=== PATIENT | female | born 1955 | race Caucasian/White ===

== ENCOUNTER 2018-07-21 16:24 | Inpatient (IN) ==
[2018-07-21] MEDS ORDERED: Ipratropium/Albuterol Neb 3 ML IH ONE ×2 (16:54→17:24)
[2018-07-21] MEDS ORDERED: methylPREDNISolone 125 MG/2 ML VIAL IVP ONE (17:24)
--- NOTE | 2018-07-21 17:27 | Emergency Department Note ---
Disposition Clinical Impression: COPD exacerbation Disposition: Still a Patient General Adult HPI - General Chief complaint: ED Shortness of Breath/Dyspnea Stated complaint: CP/KELSEY/Swollen legs Time Seen by Provider: 07/21/18 16:54 Source: patient, family Limitations: no limitations Nursing Notes Reviewed: Yes Vital Signs Reviewed: Yes - History of Present Illness HPI Narrative: ED attending attestation note: I examined this patient and my medical decision-making was reviewed with the emergency medicine resident ZAYRA BERTRAND agree with the documented findings, disposition and treatment plan as described except to the extent set forth below. Briefly: 63-year-old female former smoker history of COPD comes in with increasing shortness of breath chest discomfort and leg swelling. Expiratory wheezes. O2 sats are 96% on supplemental oxygen. Patient getting triple doing nebs steroids screening labs chest x-ray and EKG. Disposition pending, providing 30 minutes critical care service for this patient. Pain Scale: 2 - Related Data Home Medications Medication Instructions Recorded Confirmed Oxygen 2.5 each .ROUTE CONT 10/11/15 07/03/18 Tiotropium [Spiriva] 2 cap IH DAILY 10/11/15 07/03/18 Alendronate Sodium [Fosamax] 70 mg PO SA 06/10/18 07/03/18 Ascorbic Acid [Vitamin C] 500 mg PO DAILY 06/10/18 07/03/18 Aspirin Enteric Coated [Aspirin EC] 81 mg PO DAILY 06/10/18 07/03/18 Fish Oil/Dha/Epa [Fish Oil 1,200 4 each PO DAILY 06/10/18 07/03/18 mg Fish Oil] LORazepam [Lorazepam] 2 mg PO TID 06/10/18 07/03/18 traZODone [TraZODone] 100 mg PO HS 06/10/18 07/03/18 Acetylcysteine [Nac] 600 mg PO BID 06/11/18 07/03/18 Budesonide/Formoterol 160/4.5 2 puff IH BID 06/11/18 07/03/18 [Symbicort 160/4.5] Methylsulfonylmethane [MSM] 2,000 mg PO DAILY 06/11/18 07/03/18 Cholecalciferol (Vitamin D3) 6,000 unit PO DAILY 06/14/18 07/03/18 [Vitamin D3] Doxycycline Hyclate [Vibramycin] 100 mg PO Q12H 07/03/18 07/03/18 Ipratropium/Albuterol Neb [Duoneb] 3 ml IH QID 07/03/18 07/03/18 LORazepam [Lorazepam] 2 mg PO TID 07/03/18 07/03/18 OXcarbazepine [Oxcarbazepine] 150 mg PO HS 07/03/18 07/03/18 Roflumilast [Daliresp] 500 mcg PO DAILY 07/03/18 07/03/18 Allergies Allergy/AdvReac Type Severity Reaction Status Date / Time azithromycin [From Zithromax] Allergy See Verified 06/11/18 21:34 Comments diphenhydramine Allergy Dizziness/ Verified 06/11/18 21:34 [From Benadryl] DIFFICULTY SWALLOWING Past Medical History - Past Medical History Medical history: Reports: COPD Surgical history: Reports: appendectomy Psychiatric history: Reports: anxiety, depression, panic disorder 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, 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 - Social History Smoking Status: Current every day smoker Smokeless Tobacco Status: No Alcohol use: Reports: none Drug use: Reports: none Physical Exam - General Limitations: no limitations General appearance: alert, in no apparent distress Course Vital Signs Temperature 98.6 F 07/21/18 16:26 Pulse Rate 104 07/21/18 16:26 Respiratory Rate 22 07/21/18 16:26 Blood Pressure 127/78 07/21/18 16:26 O2 Sat by Pulse Oximetry 95 07/21/18 16:26 Temperature 98.6 F 07/21/18 16:26 Pulse Rate 104 07/21/18 16:26 Respiratory Rate 22 07/21/18 16:26 Blood Pressure 127/78 07/21/18 16:26 O2 Sat by Pulse Oximetry 97 07/21/18 16:56 Oxygen Delivery Oxygen Delivery Room Air
--- NOTE | 2018-07-21 17:41 | Emergency Department Note ---
Disposition Clinical Impression: COPD exacerbation Disposition: Still a Patient Referrals: Javi Eduardo MD [Primary Care Provider] - Forms: ED Satisfaction Letter SOB HPI - General Chief Complaint: ED Shortness of Breath/Dyspnea Stated Complaint: CP/KELSEY/Swollen legs Time Seen by Provider: 07/21/18 16:54 Source: patient, family Limitations: no limitations Nursing Notes Reviewed: Yes Vital Signs Reviewed: Yes - History of Present Illness 63yo female presents from home with bedside for evaluation of dyspnea. SHe was admitted to this facility 5 weeks ago with acute exacerbation COPD. She improved slightly however is not back to baseline. She previously used 2L NC at night. Since discharge has been using 2-2.5L O2 continuously. Not improved with home duonebs. She finished her last dose of prednisone 2days ago. She has no associated cough. No fever. No chest pain. Patient also notes orthopnea. Present for the past 5 weeks and unchanged recently. PMH: COPD, anxiety, depression. ROS: Pos: dyspnea Neg: fever, chills, nausea, vomiting, chest pain, palpitations, vertigo - Related Data Home Medications Medication Instructions Recorded Confirmed Oxygen 2.5 each .ROUTE CONT 10/11/15 07/03/18 Tiotropium [Spiriva] 2 cap IH DAILY 10/11/15 07/03/18 Alendronate Sodium [Fosamax] 70 mg PO SA 06/10/18 07/03/18 Ascorbic Acid [Vitamin C] 500 mg PO DAILY 06/10/18 07/03/18 Aspirin Enteric Coated [Aspirin EC] 81 mg PO DAILY 06/10/18 07/03/18 Fish Oil/Dha/Epa [Fish Oil 1,200 4 each PO DAILY 06/10/18 07/03/18 mg Fish Oil] LORazepam [Lorazepam] 2 mg PO TID 06/10/18 07/03/18 traZODone [TraZODone] 100 mg PO HS 06/10/18 07/03/18 Acetylcysteine [Nac] 600 mg PO BID 06/11/18 07/03/18 Budesonide/Formoterol 160/4.5 2 puff IH BID 06/11/18 07/03/18 [Symbicort 160/4.5] Methylsulfonylmethane [MSM] 2,000 mg PO DAILY 06/11/18 07/03/18 Cholecalciferol (Vitamin D3) 6,000 unit PO DAILY 06/14/18 07/03/18 [Vitamin D3] Doxycycline Hyclate [Vibramycin] 100 mg PO Q12H 07/03/18 07/03/18 Ipratropium/Albuterol Neb [Duoneb] 3 ml IH QID 07/03/18 07/03/18 LORazepam [Lorazepam] 2 mg PO TID 07/03/18 07/03/18 OXcarbazepine [Oxcarbazepine] 150 mg PO HS 07/03/18 07/03/18 Roflumilast [Daliresp] 500 mcg PO DAILY 07/03/18 07/03/18 Allergies Allergy/AdvReac Type Severity Reaction Status Date / Time azithromycin [From Zithromax] Allergy See Verified 06/11/18 21:34 Comments diphenhydramine Allergy Dizziness/ Verified 06/11/18 21:34 [From Benadryl] DIFFICULTY SWALLOWING All systems ED: reviewed and negative except as stated. 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 Head: atraumatic, normocephalic Eye: normal appearance, PERRL, EOMI, no scleral icterus, no conjunctival injection ENT: mucous membranes moist, normal external ear exam Neck: normal inspection, trachea midline, full ROM Chest: normal inspection, symmetric chest rise Respiratory: Good respiratory effort. Bilateral breath sounds are equally diminished with prolonged expiratory phase and expiratory wheeze. No crackles or rhonchi. Cardiovascular: Regular rate and rhythm. No clicks, rubs, gallops, or murmors. Normal heart sounds. BL radial pulses 2/4. No pedal edema. Abdomen: Bowel sounds present normoactive. Abdomen is soft, nondistended, and nontender. No guarding or rebound. No organomegaly noted. Musculoskeletal: Spontaneously moving all extremities. Skin: warm, dry, intact. Neuro: GCS 15. No focal neurologic deficits observed. Psych: Patient's affect is appropriate for situation. - General Limitations: no limitations General appearance: alert, in no apparent distress Course Course Narrative: Clinically suspect acute exacerbation COPD. Duonebs, solumedrol. Also eval for potential pulmonary infection and cardiac ischemia. EKG dated 21 July 2018 at 16:31 interpreted as sinus tachycardia with a rate of 102. MD 175, QRS 77, QTc 375. Normal axis. Non-specific STT changes. Compar ed to previous EKG dated 06/10/18 showing no acute ischemic changes. Vital Signs Temperature 98.6 F 07/21/18 16:26 Pulse Rate 104 07/21/18 16:26 Respiratory Rate 22 07/21/18 16:26 Blood Pressure 127/78 07/21/18 16:26 O2 Sat by Pulse Oximetry 95 07/21/18 16:26 Temperature 98.6 F 07/21/18 16:26 Pulse Rate 100 07/21/18 18:38 Respiratory Rate 20 07/21/18 18:38 Blood Pressure 145/84 07/21/18 18:38 O2 Sat by Pulse Oximetry 97 07/21/18 18:38 Oxygen Delivery Oxygen Delivery Nasal Cannula Shortness of Breath/Dyspnea - Lab Data Result diagrams: 07/21/18 17:57 Lab Results 07/21/18 Range/Units 17:57 WBC 9.2 (4.3-11.1) K/mcL RBC 4.70 (3.82-4.97) M/mcL Hgb 13.8 (11.5-15.4) g/dL Hct 42.8 (35.3-44.9) % MCV 91.1 (83.0-100.0) fL MCH 29.4 (28.0-33.3) pg MCHC 32.2 (31.6-35.5) g/dL RDW 14.7 H (11.5-14.5) % Plt Count 215 (140-400) K/mcL MPV 9.7 (9.4-12.4) fL Immature Gran % 1.0 (0-4) % Seg Neutrophils % 78.7 % Lymphocytes % 13.7 % Monocytes % 6.1 % Eosinophils % 0.1 % Basophils % 0.4 % Neutrophils # 7.3 (1.6-8.9) K/mcL Lymphocytes # 1.3 (0.6-4.6) K/mcL Monocytes # 0.6 (0.0-1.3) K/mcL Eosinophils # 0.0 (0.0-0.6) K/mcL Basophils # 0.0 (0.0-0.2) K/mcL
[2018-07-21 18:29] LABS: Basophils % 0.4 %; Eosinophils % 0.1 %; Hematocrit 42.8 % (35.3-44.9); Hemoglobin 13.8 g/dL (11.5-15.4); Lymphocytes # 1.3 K/mcL (0.6-4.6); Lymphocytes % 13.7 %; Mean Corpuscular HGB Conc 32.2 g/dL (31.6-35.5); Mean Corpuscular Hemoglobin 29.4 pg (28.0-33.3); Mean Corpuscular Volume 91.1 fL (83.0-100.0); Mean Platelet Volume 9.7 fL (9.4-12.4); Monocytes # 0.6 K/mcL (0.0-1.3); Monocytes % 6.1 %; Neutrophils # 7.3 K/mcL (1.6-8.9); Platelet Count 215 K/mcL (140-400); Red Cell Distribution Width 14.7 % (11.5-14.5); Segmented Neutrophils % 78.7 %
[2018-07-21 18:53] LABS: BUN/Creatinine Ratio 12 (6-26); Blood Urea Nitrogen 6 mg/dL (8-23); Calcium 9.2 mg/dL (8.6-10.3); Carbon Dioxide 30 mEq/L (23-29); Chloride 102 mEq/L (98-107); Glucose 95 mg/dL (70-105); Osmolality,Calculated 291 (280-300); Potassium 3.9 mEq/L (3.5-5.1); Sodium 142 mEq/L (136-145); Troponin I < 0.03 ng/mL (< 0.04); eGFR For Non-African Americans > 60 (> 60)
--- NOTE | 2018-07-21 18:58 | Emergency Department Note ---
Disposition Clinical Impression: COPD exacerbation Disposition: Admitted As Inpatient Condition: Good Time of Disposition: 18:57 General Adult HPI - General Chief complaint: ED Shortness of Breath/Dyspnea Stated complaint: CP/KELSEY/Swollen legs Time Seen by Provider: 07/21/18 16:54 Source: patient, family Limitations: no limitations Nursing Notes Reviewed: Yes Vital Signs Reviewed: Yes - History of Present Illness Pain Scale: 0 - Related Data Home Medications Medication Instructions Recorded Confirmed Oxygen 2.5 each .ROUTE CONT 10/11/15 07/21/18 Tiotropium [Spiriva] 2 cap IH DAILY 10/11/15 07/21/18 Alendronate Sodium [Fosamax] 70 mg PO SA 06/10/18 07/21/18 Ascorbic Acid [Vitamin C] 500 mg PO DAILY 06/10/18 07/21/18 Aspirin Enteric Coated [Aspirin EC] 81 mg PO DAILY 06/10/18 07/21/18 Fish Oil/Dha/Epa [Fish Oil 1,200 4 each PO DAILY 06/10/18 07/21/18 mg Fish Oil] LORazepam [Lorazepam] 2 mg PO TID 06/10/18 07/21/18 traZODone [TraZODone] 100 mg PO HS 06/10/18 07/03/18 Acetylcysteine [Nac] 600 mg PO BID 06/11/18 07/21/18 Budesonide/Formoterol 160/4.5 2 puff IH BID 06/11/18 07/21/18 [Symbicort 160/4.5] Methylsulfonylmethane [MSM] 2,000 mg PO DAILY 06/11/18 07/21/18 Cholecalciferol (Vitamin D3) 6,000 unit PO DAILY 06/14/18 07/21/18 [Vitamin D3] Doxycycline Hyclate [Vibramycin] 100 mg PO Q12H 07/03/18 07/03/18 Ipratropium/Albuterol Neb [Duoneb] 3 ml IH QID 07/03/18 07/21/18 LORazepam [Lorazepam] 2 mg PO TID 07/03/18 07/03/18 OXcarbazepine [Oxcarbazepine] 150 mg PO HS 07/03/18 07/21/18 Roflumilast [Daliresp] 500 mcg PO DAILY 07/03/18 07/21/18 Previous Rx's Medication Instructions Recorded PredniSONE [Deltasone] 40 mg PO DAILY #10 tablet 07/21/18 Allergies Allergy/AdvReac Type Severity Reaction Status Date / Time azithromycin [From Zithromax] Allergy See Verified 06/11/18 21:34 Comments diphenhydramine Allergy Dizziness/ Verified 06/11/18 21:34 [From Benadryl] DIFFICULTY SWALLOWING Past Medical History - Past Medical History Attestation: Yes The following information was validated with the patient. 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 - Social History Smoking Status: Current every day smoker Smokeless Tobacco Status: No Alcohol use: Reports: none Drug use: Reports: none Physical Exam - General Limitations: no limitations General appearance: alert, in no apparent distress - Head Head exam: atraumatic, normocephalic, normal inspection - Eye Eye exam: Present: normal appearance, PERRL, EOMI - ENT ENT exam: normal exam, normal oropharynx, mucous membranes moist - Neck Neck exam: Present: normal inspection, full ROM, trachea midline - Chest Chest inspection: Present: normal inspection, symmetric chest wall rise - Respiratory Respiratory exam: Present: normal lung sounds bilaterally. Absent: respiratory distress, accessory muscle use - Cardiovascular Cardiovascular exam: Present: regular rate, normal rhythm, normal heart sounds - Extremities Exam Extremities exam: Present: normal inspection, full ROM, normal capillary refill. Absent: tenderness, pedal edema - Neurological Exam Neurological exam: Present: alert, oriented X3 - Psychiatric Psychiatric exam: Present: normal affect, normal mood - Skin Skin exam: Present: warm, dry, intact, normal color Course Course Narrative: Patient signed out by the date seen please see their note for further. Patient denying any chest pain. Workup is completed. No significant laboratory abnormalities. We will be treating the patient for a COPD exacerbation with doxycycline and prednisone burst. - Reevaluation(s) Reevaluation #1: Patient ambulated back from the bathroom is now sitting on bed. She has her at- home pulse ox on her finger. She appears anxious and states that her numbers were 86/112. To clarify this her oxygen saturations appeared to be 86 and her heart rate appear to be 112. However on our monitor the patient pulse ox is 95% on HER-2 liters that she wears all the time. After patient states in the bed and we have a conversation patient states that she does have a history of anxiety. He has been is at bedside and states that this is concerning for him because he does not know if this is her anxiety or her COPD. He states that she frequently gets very anxious. Patient is resting comfortable during our extensive conversation. It does appear is a patient had recently been on doxycycline as well as prednisone by Dr. Viviana nino after a discharge from the hospital here for an admission for a COPD exacerbation. She is now on oxygen all the time. She was not on it previously. She denies a fever. She denies a cough. She states that she does intermittently have lower extremity swelling and reports some swelling currently however on exam there is no swelling to her lower extremities. Her lung sounds are markedly clear. I discussed with patient that we will have her sit for approximately 15 minutes and ambulate her on her oxygen as she was not wearing it when she went to the bathroom before. Patient states that she does follow again with Dr. Viviana nino in pulmonology and she will be able to see them. Time: 19:32 Reevaluation #2: Patient hypoxic on ambulation. Thought is oxygen saturation of 86% on 2 L of oxygen. We will admit patient to the hospital for COPD exacerbation. - Consultations Consultation #1: Dr gray accepted patient in stable condition. Time: 20:26 Vital Signs Temperature 98.6 F 07/21/18 16:26 Pulse Rate 104 07/21/18 16:26 Respiratory Rate 22 07/21/18 16:26 Blood Pressure 127/78 07/21/18 16:26 O2 Sat by Pulse Oximetry 95 07/21/18 16:26 Temperature 98.6 F 07/21/18 16:26 Pulse Rate 100 07/21/18 18:38 Respiratory Rate 20 07/21/18 18:38 Blood Pressure 145/84 07/21/18 18:38 O2 Sat by Pulse Oximetry 97 07/21/18 18:38 Oxygen Delivery Oxygen Delivery Nasal Cannula Medical Decision Making - Medical Records Medical records reviewed: Yes I reviewed the patient's medical records. - Lab Data Lab results reviewed: Yes I reviewed the patient's lab results. Result diagrams: 07/21/18 17:57 07/21/18 17:57 Lab Results 07/21/18 07/21/18 07/21/18 Range/Units 17:57 17:57 17:57 WBC 9.2 (4.3-11.1) K/mcL RBC 4.70 (3.82-4.97) M/mcL Hgb 13.8 (11.5-15.4) g/dL Hct 42.8 (35.3-44.9) % MCV 91.1 (83.0-100.0) fL MCH 29.4 (28.0-33.3) pg MCHC 32.2 (31.6-35.5) g/dL RDW 14.7 H (11.5-14.5) % Plt Count 215 (140-400) K/mcL MPV 9.7 (9.4-12.4) fL Immature Gran % 1.0 (0-4) % Seg Neutrophils % 78.7 % Lymphocytes % 13.7 % Monocytes % 6.1 % Eosinophils % 0.1 % Basophils % 0.4 % Neutrophils # 7.3 (1.6-8.9) K/mcL Lymphocytes # 1.3 (0.6-4.6) K/mcL Monocytes # 0.6 (0.0-1.3) K/mcL Eosinophils # 0.0 (0.0-0.6) K/mcL Basophils # 0.0 (0.0-0.2) K/mcL Sodium 142 (136-145) mEq/L Potassium 3.9 (3.5-5.1) mEq/L Chloride 102 (98-107) mEq/L Carbon Dioxide 30 H (23-29) mEq/L BUN 6 L (8-23) mg/dL Creatinine 0.50 L (0.60-1.20) mg/dL Est GFR ( Amer) > 60 (> 60) Est GFR (Non-Af Amer) > 60 (> 60) BUN/Creatinine Ratio 12 (6-26) Glucose 95 (70-105) mg/dL Calculated Osmolality 291 (280-300) Calcium 9.2 (8.6-10.3) mg/dL Troponin I < 0.03 (< 0.04) ng/mL B-Natriuretic Peptide 46 (Less than 100) pg/mL - Radiology Data Radiology results reviewed: Yes I reviewed the patient's radiology results. Chest X-Ray 07/21/18 16:55 IMPRESSION: Question of COPD with chronic lung changes. No acute cardiopulmonary disease. D/ / Dilshad Gerardo MD / Dilshad Gerardo MD Interpreting Provider: Dilshad Gerardo MD Attestation Statement - Attestation Attestation: I, Jb Lock, examined this patient and my medical decision-making was reviewed with the LABORATORY COURIER/PA/Advanced Practice Nurse/Resident Physician. I agree with the documented findings, disposition and treatment plan as described except to the extent set forth below. 63-year-old received in signout pending laboratory evaluation, reevaluation and disposition. Patient has a history of COPD and has had difficulty in breathing. She received 3 treatments in the emergency department. Chest x-ray does not show acute infiltrate. Patient became hypoxic with ambulation. She will be at admitted to hospitalist for further evaluation.
[2018-07-21] MEDS ORDERED: Levofloxacin 750 MG/150 ML 750 MG/150 ML BAG IVPB ONE (20:24)
[2018-07-21] MEDS ORDERED: Albuterol 2.5 MG/3 ML NEBULIZER IH PRN (22:22)
[2018-07-21] MEDS: Ipratropium/Albuterol Neb 3 ML IH SCH (23:03)
[2018-07-22] MEDS: Ipratropium/Albuterol Neb 3 ML IH SCH ×6 (03:41→23:12)
[2018-07-22] MEDS ORDERED: Naloxone 0.4 MG/ML INJ IVP PRN (08:17)
[2018-07-22] MEDS ORDERED: Ondansetron 4 MG/2 ML VIAL IVP PRN (08:17)
--- NOTE | 2018-07-22 09:42 | Pulmonary Rehab ITP ---
Pulmonary Rehab ITP - Core Component: Tobacco Assessment Smoking Status: Current every day smoker - Nutrition Assessment Height: 1.65 m Weight: 89.5 kg Body Mass Index (BMI): 32.83 Body Mass Index (BMI) Classification: Obese - Six Minute Walk Test Oxygen Flow Rate (LPM): 3 Attestation Statement: I had face to face contact with patient, reviewed the ITP, and agree with continuation of plan.
[2018-07-22] MEDS: Aspirin Enteric Coated 81 MG Tablet PO SCH (09:59)
[2018-07-22] MEDS: *HR* LORazepam 1 MG TABLET PO SCH ×3 (09:59→21:08)
[2018-07-22] MEDS: MethylPREDNISolone 40 MG/ML VIAL IVP SCH ×2 (09:59→17:46)
[2018-07-22] MEDS: Budesonide/Formoterol 160/4.5 1 PUFF INH IH SCH ×2 (11:08→19:35)
--- NOTE | 2018-07-22 13:09 | Internal Med History&Physical ---
Date of Encounter: 07/22/18 Time of Encounter: 12:00 Internal Medicine - H&P: HPI Chief complaint: SOB Admitted From: Home History of present illness: Ms. Iverson is a 63 year old female with history of oxygen dependent COPD, anxiety, previous tobacco use, who presented to the ED with 3 day history of shortness of breath. 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 Associated with worsening cough and sputum production. He got the point where she is unable to expectorate her phlegm for the last 2 days. Denies any fever/chills, nausea/vomiting, chest pain, diaphoresis, or sick contact. No hemoptysis, palpitation, orthopnea, PND, or leg swelling. No GI/ symptoms. No recent surgery or immobilization. In the ED, she was afebrile and hemodynamically stable. Saturating 97% on 3L O2. Labwork was unremarkable with normal white blood cell count, troponin, and BNP. Chest x-ray also does not show any acute cardiopulmonary process. Patient was given IV Solu-Medrol, bronchodilators, levaqun, and admitted for further management. Past Med Surg Social Fam HX - Past Medical History Medical history: COPD Additional medical history: Heart murmur. Psychiatric history: anxiety, depression, panic disorder - Past Surgical History Surgical History: appendectomy Additional surgical history: T6-T7 Fracture, non-surgical. - Social History Smoking Status: Former smoker Smokeless Tobacco Status: No Alcohol use: none Drug use: none - Family History Daughter Hx Family Endocrine Disorder: Yes (DM) Sister Hx Family Endocrine Disorder: Yes (DM) Brother Hx Family Endocrine Disorder: Yes (DM) Mother Living Status: Still Living Hx Family Respiratory Disorders: Yes (COPD) Internal Medicine - H&P: Meds Oxygen 2.5 each .ROUTE CONT 10/11/15 [History] Tiotropium [Spiriva] 2 cap IH DAILY 10/11/15 [History] Alendronate Sodium [Fosamax] 70 mg PO SA 06/10/18 [History] Ascorbic Acid [Vitamin C] 500 mg PO DAILY 06/10/18 [History] Aspirin Enteric Coated [Aspirin EC] 81 mg PO DAILY 06/10/18 [History] Fish Oil/Dha/Epa [Fish Oil 1,200 mg Fish Oil] 4 each PO DAILY 06/10/18 [History] LORazepam [Lorazepam] 2 mg PO TID 06/10/18 [History] traZODone [TraZODone] 100 mg PO HS 06/10/18 [History] Acetylcysteine [Nac] 600 mg PO BID 06/11/18 [History] Budesonide/Formoterol 160/4.5 [Symbicort 160/4.5] 2 puff IH BID 06/11/18 [History] Methylsulfonylmethane [MSM] 2,000 mg PO DAILY 06/11/18 [History] Cholecalciferol (Vitamin D3) [Vitamin D3] 6,000 unit PO DAILY 06/14/18 [History] Doxycycline Hyclate [Vibramycin] 100 mg PO Q12H 07/03/18 [History] Ipratropium/Albuterol Neb [Duoneb] 3 ml IH QID 07/03/18 [History] LORazepam [Lorazepam] 2 mg PO TID 07/03/18 [History] OXcarbazepine [Oxcarbazepine] 150 mg PO HS 07/03/18 [History] Roflumilast [Daliresp] 500 mcg PO DAILY 07/03/18 [History] PredniSONE [Deltasone] 40 mg PO DAILY #10 tablet 07/21/18 [Rx] Allergy/AdvReac Type Severity Reaction Status Date / Time azithromycin [From Zithromax] Allergy See Verified 06/11/18 21:34 Comments diphenhydramine Allergy Dizziness/ Verified 06/11/18 21:34 [From Benadryl] DIFFICULTY SWALLOWING All Systems PM: A 10-system review of systems was performed and is negative for pertinent findings except as documented above in the HPI. - Constitutional Vitals: Temp Pulse Resp BP Pulse Ox 97.9 F 106 19 107/70 90 07/22/18 10:35 07/22/18 10:35 07/22/18 11:10 07/22/18 10:35 07/22/18 11:10 Exam: General: Alert and oriented, mild distress. HEENT:EOM, pupils equal, round and reactive. Cardiovascular:Normal S1 & S2, No JVD. Regular rhythm but tachycardic Lungs: Wheezing worse on the lung bases, poor air entry bilaterally Abdomen:Soft, non-tender, no rigidity. Extremities:No deformity or swelling Neurological:Normal cognition and motor skills. Non-focal Skin:Normal color, no rash, no lesions. Pulses:Carotid and radial pulses normal +2. Rest of the physical exam is non contributory Internal Med - H&P Results - Labs CBC & Chem 7: 07/21/18 17:57 07/21/18 17:57 Labs: Short CBC 07/21/18 Range/Units 17:57 WBC 9.2 (4.3-11.1) K/mcL Hgb 13.8 (11.5-15.4) g/dL Hct 42.8 (35.3-44.9) % Plt Count 215 (140-400) K/mcL Neutrophils # 7.3 (1.6-8.9) K/mcL BMP 07/21/18 17:57 Sodium 142 Potassium 3.9 Chloride 102 Carbon Dioxide 30 H BUN 6 L Creatinine 0.50 L Glucose 95 Calcium 9.2 Cardiac Enzymes 07/21/18 Range/Units 17:57 Troponin I < 0.03 (< 0.04) ng/mL - Impressions ITS Impressions Chest X-Ray 07/21/18 16:55 IMPRESSION: Question of COPD with chronic lung changes. No acute cardiopulmonary disease. D/ / Dilshad Gerardo MD / Dilshad Gerardo MD Interpreting Provider: Dilshad Gerardo MD - Assessment and Plan (1) COPD exacerbation Current Visit: Yes Status: Acute Assessment and plan: Was recently on outpatient therapy with steroid and doxycycline No fever or leukocytosis. Chest x-ray without infiltrate Started on IV Solu-Medrol, bronchodilators. Will add macrolide for 5 days Check respiratory viral panel (2) Chronic respiratory failure with hypoxia Current Visit: Yes Status: Chronic Assessment and plan: on 3L at home chronically, currently requiring 3-4L due to COPD exacerbation Wean to her baseline as tolerated (3) Anxiety Current Visit: Yes Status: Acute Assessment and plan: Part of her symptoms may be attributed to poorly controlled anxiety Resume home dose of Ativan would consider adding SSRI upon discharge (4) DVT prophylaxis Current Visit: No Status: Acute Assessment and plan: Subcutaneous heparin - Time Spent With Patient Total time spent is greater than 50% in coordination of care (as documented) at patient's floor/unit and/or counseling patient: 25 - 35 minutes
[2018-07-22] MEDS: levoFLOXacin 750 MG TABLET PO SCH (13:42)
[2018-07-22] MEDS ORDERED: Azithromycin 500 MG in D5% in Water 250 ML IVPB SCH (14:00)
--- NOTE | 2018-07-22 16:16 | Electrocardiograph Report ---
[facility] Test Date: 2018-07-21 Pat Name: Akanksha Iverson Department: 104 Room: 3A34 Gender: F Tuck Pointer: : 1955 Requested By: Manolo Louis Order Number: [id number] Reading MD: Jean Claude Shelton Measurements Intervals [place] Rate: 102 P: 51 MN: 175 QRS: 42 QRSD: 77 T: 52 QT: 316 QTc: 375 Interpretive Statements SINUS TACHYCARDIA POSSIBLE LEFT ATRIAL ENLARGEMENT LOW QRS VOLTAGE IN PRECORDIAL LEADS ABNORMAL RHYTHM ECG Electronically Signed On 07-22-2018 16:15:05 EDT by Jean Claude Shelton
[2018-07-22] MEDS: *HR* Heparin 5,000 UNIT/ML VIAL SQ SCH (17:46)
[2018-07-22] MEDS: OXcarbazepine 150 MG TABLET PO SCH (21:08)
[2018-07-23] MEDS: Ipratropium/Albuterol Neb 3 ML IH SCH ×6 (03:14→23:29)
[2018-07-23] MEDS: MethylPREDNISolone 40 MG/ML VIAL IVP SCH ×2 (05:08→17:32)
[2018-07-23] MEDS: *HR* Heparin 5,000 UNIT/ML VIAL SQ SCH ×2 (05:08→17:32)
[2018-07-23] MEDS: Budesonide/Formoterol 160/4.5 1 PUFF INH IH SCH ×2 (07:16→19:50)
[2018-07-23 07:32] LABS: Adenovirus Not Detected (Not Detect); Bordetella Pertussis Not Detected (Not Detect); Chlamydophila pneumoniae Not Detected (Not Detect); Coronavirus 229E Not Detected (Not Detect); Coronavirus HKU1 Not Detected (Not Detect); Coronavirus NL63 Not Detected (Not Detect); Coronavirus OC43 Not Detected (Not Detect); Human Metapneumovirus Not Detected (Not Detect); Human Rhinovirus/Enterovirus Not Detected (Not Detect); Influenza A Subtype 2009 H1 Not Detected (Not Detect); Influenza A Untypeable Not Detected (Not Detect); Influenza B Not Detected (Not Detect); Mycoplasma pneumoniae Not Detected (Not Detect); Parainfluenza Virus 1 Not Detected (Not Detect); Parainfluenza Virus 2 Not Detected (Not Detect); Parainfluenza Virus 3 Not Detected (Not Detect); Parainfluenza Virus 4 Not Detected (Not Detect); Respiratory Syncytial Virus Not Detected (Not Detect)
[2018-07-23 07:47] LABS: Hematocrit 42.7 % (35.3-44.9); Hemoglobin 13.6 g/dL (11.5-15.4); Mean Corpuscular HGB Conc 31.9 g/dL (31.6-35.5); Mean Corpuscular Hemoglobin 29.3 pg (28.0-33.3); Mean Platelet Volume 9.7 fL (9.4-12.4); Platelet Count 242 K/mcL (140-400); Red Blood Count 4.64 M/mcL (3.82-4.97); Red Cell Distribution Width 14.6 % (11.5-14.5)
[2018-07-23 08:07] LABS: BUN/Creatinine Ratio 26 (6-26); Blood Urea Nitrogen 15 mg/dL (8-23); Calcium 9.5 mg/dL (8.6-10.3); Carbon Dioxide 30 mEq/L (23-29); Chloride 104 mEq/L (98-107); Glucose 127 mg/dL (70-105); Magnesium 2.5 mg/dL (1.6-2.6); Osmolality,Calculated 298 (280-300); Potassium 5.8 mEq/L (3.5-5.1); Sodium 143 mEq/L (136-145); eGFR For Non-African Americans > 60 (> 60)
[2018-07-23] MEDS: levoFLOXacin 750 MG TABLET PO SCH (08:44)
[2018-07-23] MEDS: *HR* LORazepam 1 MG TABLET PO SCH ×3 (08:44→20:36)
[2018-07-23] MEDS: Aspirin Enteric Coated 81 MG Tablet PO SCH (08:44)
--- NOTE | 2018-07-23 11:09 | Discharge Summary ---
- NOTES TO OUTPATIENT PROVIDER Notes to Outpatient Provider: Follow up with pulmonary and psychiatry as outpatient for COPD and anxiety respectively. Orders not resulted at time of discharge: Pending orders 07/21/18 21:58 Culture,Blood [BC] Stat 07/23/18 10:54 Potassium Stat Date of Encounter: 07/23/18 Time of Encounter: 08:15 - Discharge Diagnosis (1) COPD exacerbation Priority: Primary Status: Acute (2) Chronic respiratory failure with hypoxia Priority: Secondary Status: Chronic (3) Anxiety Priority: Secondary Status: Acute (4) DVT prophylaxis Priority: Secondary Status: Acute Hospital course: Ms. Iverson is a 63 year old female with history of oxygen dependent COPD and anxiety who was admitted for COPD exacerbation. Did not require any additional O2, no overt wheezing auscultated, no consolidation on CXR, and -ve respiratory viral panel. Pt stated that she slept well in the hospital for the first time in the last few months as she knew that she was in "safer environment". Suspect there is a large component of anxiety driving her symptomatology. She is seeing a psychiatrist as an outpatient who is prescribing her ativan as well as Trileptal. I have given her a trial of PRN hydroxyzine and advised to follow up with her psychiatrist. She will be treated with a short course of PO levaquin and tapering course of steroid and follow up with pulmonology. Discharge discussed with: patient, family, nurse, social work, case management - Time Spent with Patient Total time spent providing and/or coordinating discharge services: 28 mins - Discharge Medications Prescriptions: New RX: levoFLOXacin [Levaquin] 750 mg PO DAILY #3 tablet predniSONE [PredniSONE] 40 mg PO DAILY #16 tablet Continue RX: Oxygen 2.5 l IH DAILY RX: Tiotropium [Spiriva] 2 cap IH DAILY RX: traZODone [TraZODone] 75 - 100 mg PO HS PRN PRN Reason: Sleep RX: LORazepam [Lorazepam] 2 mg PO TID RX: Alendronate Sodium [Fosamax] 70 mg PO SA RX: Aspirin Enteric Coated [Aspirin EC] 81 mg PO DAILY RX: Fish Oil/Dha/Epa [Fish Oil 1,200 mg Fish Oil] 4 cap PO DAILY RX: Ascorbic Acid [Vitamin C] 500 mg PO DAILY RX: Methylsulfonylmethane [MSM] 2,000 mg PO DAILY RX: Acetylcysteine [Nac] 500 mg PO BID RX: Budesonide/Formoterol 160/4.5 [Symbicort 160/4.5] 2 puff IH BID RX: Cholecalciferol (Vitamin D3) [Vitamin D3] 6,000 unit PO DAILY RX: OXcarbazepine [Oxcarbazepine] 150 mg PO HS RX: Ipratropium/Albuterol Neb [Duoneb] 3 ml IH QID RX: Roflumilast [Daliresp] 500 mcg PO DAILY RX: Albuterol Sulfate [Ventolin Hfa] 2 puff IH Q4H PRN PRN Reason: Shortness Of Breath RX: Doxepin HCl 10 mg PO DAILY Home Medications: RX: Oxygen 2.5 l IH DAILY 10/11/15 [History] RX: Tiotropium [Spiriva] 2 cap IH DAILY 10/11/15 [History] RX: Alendronate Sodium [Fosamax] 70 mg PO SA 06/10/18 [History] RX: Ascorbic Acid [Vitamin C] 500 mg PO DAILY 06/10/18 [History] RX: Aspirin Enteric Coated [Aspirin EC] 81 mg PO DAILY 06/10/18 [History] RX: Fish Oil/Dha/Epa [Fish Oil 1,200 mg Fish Oil] 4 cap PO DAILY 06/10/18 [History] RX: LORazepam [Lorazepam] 2 mg PO TID 06/10/18 [History] RX: traZODone [TraZODone] 75 - 100 mg PO HS PRN 06/10/18 [History] RX: Acetylcysteine [Nac] 500 mg PO BID 06/11/18 [History] RX: Budesonide/Formoterol 160/4.5 [Symbicort 160/4.5] 2 puff IH BID 06/11/18 [History] RX: Methylsulfonylmethane [MSM] 2,000 mg PO DAILY 06/11/18 [History] RX: Cholecalciferol (Vitamin D3) [Vitamin D3] 6,000 unit PO DAILY 06/14/18 [History] RX: Ipratropium/Albuterol Neb [Duoneb] 3 ml IH QID 07/03/18 [History] RX: OXcarbazepine [Oxcarbazepine] 150 mg PO HS 07/03/18 [History] RX: Roflumilast [Daliresp] 500 mcg PO DAILY 07/03/18 [History] RX: Albuterol Sulfate [Ventolin Hfa] 2 puff IH Q4H PRN 07/22/18 [History] RX: Doxepin HCl 10 mg PO DAILY 07/22/18 [History] RX: levoFLOXacin [Levaquin] 750 mg PO DAILY #3 tablet 07/23/18 [Rx] predniSONE [PredniSONE] 40 mg PO DAILY #16 tablet 07/23/18 [Rx] Allergies/Adverse Reactions: Allergy/AdvReac Type Severity Reaction Status Date / Time azithromycin [From Zithromax] Allergy See Verified 06/11/18 21:34 Comments diphenhydramine Allergy Dizziness/ Verified 06/11/18 21:34 [From Benadryl] DIFFICULTY SWALLOWING Date of admission: 07/22/18 10:23 Primary care physician: Javi Eduardo MD Consults: 07/21/18 21:50 Consult to [employer] [CONS] Routine Reason for SW Consult: Patient needs help contacting her home health services and acquiring a hospital bed. 07/22/18 08:51 Consult to Nurse Navigator [CONS] Routine Comment: copd 07/22/18 16:51 Consult to Respiratory Therapy [CONS] Routine Reason for Consult: [employer] with treatments Call Completed: Yes - Constitutional Vitals: Temp Pulse Resp BP Pulse Ox 98.3 F 83 18 122/84 98 07/23/18 06:35 07/23/18 06:35 07/23/18 07:16 07/23/18 06:35 07/23/18 07:16 Exam: General: Alert and oriented, not in distress. Cardiovascular:Normal S1 & S2, No JVD. Regular rhythm, borderline tachycardia Lungs: clear to auscultation, fair air entry Abdomen:Soft, non-tender, no rigidity. Extremities:No deformity or swelling Neurological:Normal cognition and motor skills. Non-focal - Patient Status Disposition: Home Health Service Condition: Good Functional capacity at discharge: independent ambulation Overall status at discharge: patient is progressing back to baseline - Discharge Instructions Instructions: Anxiety (DC), Chronic Obstructive Pulmonary Disease (DC) Follow Up With: Javi Eduardo MD [Primary Care Provider] - Additional Instructions: Short course of levaquin and tapering dose of steroid PRN hydroxyzine added for anxiety, follow up with her usual psychiatrist as outpatient Follow up with pulmonary - Diet and Activity Activity: resume usual activities as tolerated Diet: low salt diet
[2018-07-23] MEDS: Acetylcysteine 10% 2 ML INHSOL IH SCH ×4 (11:11→19:50)
--- NOTE | 2018-07-23 12:47 | Physician Discharge Referral ---
Home Health/Hosp Referral Info Transfer to: Home Health Provider in Charge Post Discharge: PCP - Diagnosis (1) COPD exacerbation Priority: Primary Status: Acute (2) Chronic respiratory failure with hypoxia Priority: Secondary Status: Chronic (3) Anxiety Priority: Secondary Status: Acute (4) DVT prophylaxis Priority: Secondary Status: Acute - Respiratory Orders Oxygen / L per min (2-3L) Smoking Cessation: Smoking cessation has been advised. For more information, call the [place] Tobacco Quit Line at 2-456-XFCH-NOW. - Services Needed Following services are medically necessary services: Nursing, Home Health Aide - Transfer Medications Prescriptions: hydrOXYzine pamoate [HydrOXYzine Pamoate] 25 mg PO TID PRN #30 capsule PRN Reason: Anxiety levoFLOXacin [Levaquin] 750 mg PO DAILY #3 tablet predniSONE [PredniSONE] 40 mg PO DAILY #16 tablet Home Medications: Oxygen 2.5 l IH DAILY 10/11/15 [History] Tiotropium [Spiriva] 2 cap IH DAILY 10/11/15 [History] Alendronate Sodium [Fosamax] 70 mg PO SA 06/10/18 [History] Ascorbic Acid [Vitamin C] 500 mg PO DAILY 06/10/18 [History] Aspirin Enteric Coated [Aspirin EC] 81 mg PO DAILY 06/10/18 [History] Fish Oil/Dha/Epa [Fish Oil 1,200 mg Fish Oil] 4 cap PO DAILY 06/10/18 [History] LORazepam [Lorazepam] 2 mg PO TID 06/10/18 [History] traZODone [TraZODone] 75 - 100 mg PO HS PRN 06/10/18 [History] Acetylcysteine [Nac] 500 mg PO BID 06/11/18 [History] Budesonide/Formoterol 160/4.5 [Symbicort 160/4.5] 2 puff IH BID 06/11/18 [History] Methylsulfonylmethane [MSM] 2,000 mg PO DAILY 06/11/18 [History] Cholecalciferol (Vitamin D3) [Vitamin D3] 6,000 unit PO DAILY 06/14/18 [History] Ipratropium/Albuterol Neb [Duoneb] 3 ml IH QID 07/03/18 [History] OXcarbazepine [Oxcarbazepine] 150 mg PO HS 07/03/18 [History] Roflumilast [Daliresp] 500 mcg PO DAILY 07/03/18 [History] Albuterol Sulfate [Ventolin Hfa] 2 puff IH Q4H PRN 07/22/18 [History] Doxepin HCl 10 mg PO DAILY 07/22/18 [History] hydrOXYzine pamoate [HydrOXYzine Pamoate] 25 mg PO TID PRN #30 capsule 07/23/18 [Rx] levoFLOXacin [Levaquin] 750 mg PO DAILY #3 tablet 07/23/18 [Rx] predniSONE [PredniSONE] 40 mg PO DAILY #16 tablet 07/23/18 [Rx] Allergies/Adverse Reactions: Allergy/AdvReac Type Severity Reaction Status Date / Time azithromycin [From Zithromax] Allergy See Verified 06/11/18 21:34 Comments diphenhydramine Allergy Dizziness/ Verified 06/11/18 21:34 [From Benadryl] DIFFICULTY SWALLOWING Certification: Further, I certify that my clinical findings support that this patient is homebound (i.e. absences from home require considerable and taxing effort and are for medical reasons or alevism services or infrequently or short duration when for other reasons) because: Homebound Reason: Patient requires assistance of a person or device to safely leave home Attestation: My signature below is to certify that this patient is under my care and that I, or nurse practitioner, or a physician's bankruptcy assistant working with me, has a [id number] encounter with this patient.
[2018-07-23] MEDS: OXcarbazepine 150 MG TABLET PO SCH (20:36)
[2018-07-24] MEDS: Ipratropium/Albuterol Neb 3 ML IH SCH ×3 (03:45→10:54)
[2018-07-24] MEDS: Acetylcysteine 10% 2 ML INHSOL IH SCH ×2 (03:45→07:42)
[2018-07-24] MEDS: *HR* Heparin 5,000 UNIT/ML VIAL SQ SCH (05:43)
[2018-07-24] MEDS: MethylPREDNISolone 40 MG/ML VIAL IVP SCH (05:43)
[2018-07-24] MEDS: *HR* LORazepam 1 MG TABLET PO SCH (07:17)
[2018-07-24] MEDS: levoFLOXacin 750 MG TABLET PO SCH (07:17)
[2018-07-24] MEDS: Aspirin Enteric Coated 81 MG Tablet PO SCH (07:17)
[2018-07-24] MEDS: Budesonide/Formoterol 160/4.5 1 PUFF INH IH SCH (07:41)
[2018-07-24] MEDS ORDERED: (Doxepin Hcl [Doxepin Hcl] 10 MG) PO SCH (09:00)
[2018-07-24 09:59] VITALS: BP 139/74
== END 2018-07-24 11:22 | disposition home health service (06) | DRG 140 ==
LOC: EMEROOARM 16:24 → 3ANU 16:24 → SUATTDRO 20:46 → 3ANU 21:31
PROVIDERS: ADMIT Pediatrics; ATTEND Internal Medicine

== ENCOUNTER 2019-05-25 16:44 | Observation (INO) ==
[2019-05-25] MEDS ORDERED: predniSONE 20 MG TABLET PO ONE (16:59)
[2019-05-25] MEDS ORDERED: Ipratropium/Albuterol Neb 3 ML IH ONE (16:59)
[2019-05-25 18:07] LABS: Basophils % 0.5 %; Eosinophils % 0.1 %; Hematocrit 45.4 % (35.3-44.9); Hemoglobin 14.6 g/dL (11.5-15.4); Immature Granulocytes % 0.3 % (0-4); Lymphocytes # 1.9 K/mcL (0.6-4.6); Lymphocytes % 23.2 %; Mean Corpuscular HGB Conc 32.2 g/dL (31.6-35.5); Mean Corpuscular Hemoglobin 28.2 pg (28.0-33.3); Mean Corpuscular Volume 87.6 fL (83.0-100.0); Mean Platelet Volume 10.1 fL (9.4-12.4); Monocytes # 0.5 K/mcL (0.0-1.3); Monocytes % 6.7 %; Neutrophils # 5.5 K/mcL (1.6-8.9); Platelet Count 253 K/mcL (140-400); Red Blood Count 5.18 M/mcL (3.82-4.97); Segmented Neutrophils % 69.2 %
[2019-05-25] MEDS ORDERED: Azithromycin 250 MG TABLET PO ONE (18:24)
[2019-05-25 18:27] LABS: BUN/Creatinine Ratio 9 (6-26); Blood Urea Nitrogen 6 mg/dL (8-23); Calcium 9.5 mg/dL (8.6-10.3); Carbon Dioxide 26 mEq/L (23-29); Chloride 103 mEq/L (98-107); Glucose 110 mg/dL (70-105); Osmolality,Calculated 290 (280-300); Potassium 3.6 mEq/L (3.5-5.1); Sodium 141 mEq/L (136-145); Troponin I < 0.03 ng/mL (< 0.04); eGFR For African Americans > 60 (> 60); eGFR For Non-African Americans > 60 (> 60)
[2019-05-25] MEDS ORDERED: Naloxone 0.4 MG/ML INJ IVP PRN (21:12)
[2019-05-25] MEDS ORDERED: Acetaminophen 325 MG TABLET PO PRN (21:12)
[2019-05-25] MEDS ORDERED: Ondansetron ODT 4 MG TAB.RAPDIS SL PRN (21:12)
[2019-05-25] MEDS ORDERED: traZODone 50 MG TABLET PO PRN (21:22)
[2019-05-25] MEDS ORDERED: OXcarbazepine 150 MG TABLET PO SCH (21:30)
[2019-05-25 21:44] LABS: Phosphorous 4.1 mg/dL (2.7-4.5)
[2019-05-25] MEDS: Ipratropium/Albuterol Neb 3 ML IH SCH (22:17)
[2019-05-26 00:34] LABS: Hematocrit 44.7 % (35.3-44.9); Hemoglobin 14.7 g/dL (11.5-15.4); Immature Platelets 4.6 % (1.1-6.1); Mean Corpuscular HGB Conc 32.9 g/dL (31.6-35.5); Mean Corpuscular Hemoglobin 28.4 pg (28.0-33.3); Mean Corpuscular Volume 86.5 fL (83.0-100.0); Red Blood Count 5.17 M/mcL (3.82-4.97); Red Cell Distribution Width 13.9 % (11.5-14.5)
[2019-05-26 01:23] LABS: BUN/Creatinine Ratio 8 (6-26); Blood Urea Nitrogen 5 mg/dL (8-23); Calcium 9.4 mg/dL (8.6-10.3); Carbon Dioxide 25 mEq/L (23-29); Chloride 102 mEq/L (98-107); Glucose 175 mg/dL (70-105); Magnesium 2.1 mg/dL (1.6-2.6); Osmolality,Calculated 286 (280-300); Phosphorous 3.8 mg/dL (2.7-4.5); Potassium 4.2 mEq/L (3.5-5.1); Sodium 137 mEq/L (136-145); eGFR For African Americans > 60 (> 60); eGFR For Non-African Americans > 60 (> 60)
[2019-05-26] MEDS: Ipratropium/Albuterol Neb 3 ML IH SCH ×2 (04:12→11:01)
[2019-05-26] MEDS ORDERED: *HR* Dextrose 50 % in Water (Syg) 50 ML SYRINGE IVP PRN (04:31)
[2019-05-26] MEDS ORDERED: Dextrose Gel 15 GM/37.5 ML TUBE PO PRN ×2 (04:31)
[2019-05-26] MEDS ORDERED: D5% in Water 1,000 ML IVC PRN (04:31)
[2019-05-26] MEDS ORDERED: *HR* Heparin 5,000 UNIT/ML VIAL SQ SCH (06:00)
[2019-05-26 06:45] LABS: Hematocrit 42.5 % (35.3-44.9); Hemoglobin 13.9 g/dL (11.5-15.4); Mean Corpuscular HGB Conc 32.7 g/dL (31.6-35.5); Mean Corpuscular Hemoglobin 28.3 pg (28.0-33.3); Mean Corpuscular Volume 86.6 fL (83.0-100.0); Mean Platelet Volume 10.2 fL (9.4-12.4); Platelet Count 223 K/mcL (140-400); Red Blood Count 4.91 M/mcL (3.82-4.97); White Blood Count 6.3 K/mcL (4.3-11.1)
[2019-05-26 07:05] LABS: BUN/Creatinine Ratio 9 (6-26); Blood Urea Nitrogen 6 mg/dL (8-23); Calcium 9.2 mg/dL (8.6-10.3); Carbon Dioxide 25 mEq/L (23-29); Chloride 104 mEq/L (98-107); Glucose 135 mg/dL (70-105); Osmolality,Calculated 292 (280-300); Potassium 3.9 mEq/L (3.5-5.1); Sodium 141 mEq/L (136-145); eGFR For African Americans > 60 (> 60); eGFR For Non-African Americans > 60 (> 60)
[2019-05-26 08:48] LABS: Estimated Average Glucose 128 mg/dl
[2019-05-26] MEDS ORDERED: Roflumilast [Daliresp] 500 MCG PO SCH (09:00)
[2019-05-26] MEDS ORDERED: Nicotine 21 MG PATCH.TD24 TD SCH (09:00)
[2019-05-26] MEDS ORDERED: BREXPIPRAZOLE 1.5 MG PO SCH (09:00)
[2019-05-26] MEDS ORDERED: predniSONE 20 MG TABLET PO SCH (09:00)
[2019-05-26] MEDS ORDERED: Doxycycline 100 MG CAPSULE PO SCH (09:00)
[2019-05-26] MEDS ORDERED: *HR* Acetylcysteine 20% 600 MG/3 ML ORAL SYRINGE PO SCH (09:00)
[2019-05-26] MEDS ORDERED: Furosemide 20 MG TABLET PO SCH (09:00)
[2019-05-26] MEDS ORDERED: *HR* LORazepam 1 MG TABLET PO SCH (09:00)
[2019-05-26] MEDS ORDERED: Budesonide/Formoterol 160/4.5 1 PUFF INH IH SCH (10:00)
[2019-05-26 11:00] LABS: Adenovirus Not Detected (Not Detect); Bordetella Pertussis Not Detected (Not Detect); Chlamydophila pneumoniae Not Detected (Not Detect); Coronavirus 229E Not Detected (Not Detect); Coronavirus HKU1 Not Detected (Not Detect); Coronavirus NL63 Not Detected (Not Detect); Coronavirus OC43 Not Detected (Not Detect); Human Metapneumovirus Not Detected (Not Detect); Human Rhinovirus/Enterovirus Not Detected (Not Detect); Influenza A Subtype 2009 H1 Not Detected (Not Detect); Influenza B Not Detected (Not Detect); Mycoplasma pneumoniae Not Detected (Not Detect); Parainfluenza Virus 1 Not Detected (Not Detect); Parainfluenza Virus 2 Not Detected (Not Detect); Parainfluenza Virus 3 Not Detected (Not Detect); Parainfluenza Virus 4 Not Detected (Not Detect); Respiratory Syncytial Virus Not Detected (Not Detect)
[2019-05-26] MEDS: Insulin LISPRO 300 UNITS/3 ML VIAL SQ SCH ×2 (11:02→12:01)
[2019-05-26 11:35] VITALS: BP 142/86
[2019-05-26] MEDS ORDERED: Insulin LISPRO 300 UNITS/3 ML VIAL SQ SCH (21:00)
[2019-05-26] MEDS ORDERED: Azithromycin 500 MG in 0.9 % Sodium Chloride 250 ML IVPB SCH (22:00)
[2019-05-30] MEDS ORDERED: NON-FORMULARY MEDICATION 1 EACH EACH (Alendronate Sodium [Fosamax] 70 MG) PO SCH (21:22)
== END 2019-05-26 12:42 | disposition home or self-care (01) ==
LOC: 3BNU 16:44 → EMEROOARM 16:44 → SUATTDRO 21:31 → 3BNU 22:43
PROVIDERS: ADMIT Internal Medicine; ATTEND Internal Medicine

== ENCOUNTER 2019-06-01 08:46 | Observation (INO) ==
[2019-06-01 09:14] LABS: Basophils % 0.2 %; Eosinophils # 0.1 K/mcL (0.0-0.6); Eosinophils % 0.6 %; Hematocrit 45.1 % (35.3-44.9); Hemoglobin 14.5 g/dL (11.5-15.4); Immature Granulocytes % 0.4 % (0-4); Lymphocytes # 1.4 K/mcL (0.6-4.6); Mean Corpuscular HGB Conc 32.2 g/dL (31.6-35.5); Mean Corpuscular Volume 87.1 fL (83.0-100.0); Mean Platelet Volume 9.4 fL (9.4-12.4); Monocytes # 0.6 K/mcL (0.0-1.3); Monocytes % 4.5 %; Neutrophils # 10.4 K/mcL (1.6-8.9); Platelet Count 271 K/mcL (140-400); Red Blood Count 5.18 M/mcL (3.82-4.97); Red Cell Distribution Width 14.6 % (11.5-14.5); Segmented Neutrophils % 83.3 %; White Blood Count 12.5 K/mcL (4.3-11.1)
[2019-06-01 09:16] LABS: Prothrombin Time 11.9 Seconds (9.4-12.1)
[2019-06-01 09:19] LABS: Activated Partial Thrombo Time 28.2 Seconds (26.0-36.0)
[2019-06-01 09:33] LABS: BUN/Creatinine Ratio 18 (6-26); Blood Urea Nitrogen 14 mg/dL (8-23); Calcium 9.7 mg/dL (8.6-10.3); Carbon Dioxide 27 mEq/L (23-29); Chloride 101 mEq/L (98-107); Glucose 116 mg/dL (70-105); Osmolality,Calculated 291 (280-300); Potassium 3.9 mEq/L (3.5-5.1); Sodium 140 mEq/L (136-145); eGFR For African Americans > 60 (> 60); eGFR For Non-African Americans > 60 (> 60)
[2019-06-01 09:34] LABS: Troponin I < 0.03 ng/mL (< 0.04)
[2019-06-01] MEDS ORDERED: Ipratropium/Albuterol Neb 3 ML IH ONE (11:06)
[2019-06-01] MEDS ORDERED: Naloxone 0.4 MG/ML INJ IVP PRN (12:07)
[2019-06-01] MEDS ORDERED: Ondansetron 4 MG/2 ML VIAL IVP PRN (12:07)
[2019-06-01] MEDS ORDERED: Acetaminophen 325 MG TABLET PO PRN (12:07)
[2019-06-01] MEDS ORDERED: Azithromycin 500 MG in 0.9 % Sodium Chloride 250 ML IVPB SCH (13:00)
[2019-06-01] MEDS: Budesonide Neb 0.5 MG/2 ML IH SCH ×2 (13:34→19:58)
[2019-06-01] MEDS ORDERED: levoFLOXacin 500 MG/100 ML 500 MG/100 ML BAG IVPB SCH (14:00)
[2019-06-01] MEDS: Ipratropium/Albuterol Neb 3 ML IH PRN ×2 (14:40→19:59)
[2019-06-01 15:04] LABS: Adenovirus Not Detected (Not Detect); Bordetella Pertussis Not Detected (Not Detect); Chlamydophila pneumoniae Not Detected (Not Detect); Coronavirus 229E Not Detected (Not Detect); Coronavirus HKU1 Not Detected (Not Detect); Coronavirus NL63 Not Detected (Not Detect); Coronavirus OC43 Not Detected (Not Detect); Human Metapneumovirus Not Detected (Not Detect); Human Rhinovirus/Enterovirus Not Detected (Not Detect); Influenza A Subtype 2009 H1 Not Detected (Not Detect); Influenza B Not Detected (Not Detect); Mycoplasma pneumoniae Not Detected (Not Detect); Parainfluenza Virus 1 Not Detected (Not Detect); Parainfluenza Virus 2 Not Detected (Not Detect); Parainfluenza Virus 3 Not Detected (Not Detect); Parainfluenza Virus 4 Not Detected (Not Detect); Respiratory Syncytial Virus Not Detected (Not Detect)
[2019-06-01] MEDS ORDERED: traZODone 50 MG TABLET PO PRN (18:43)
[2019-06-01] MEDS ORDERED: OXcarbazepine 150 MG TABLET PO SCH (21:00)
[2019-06-01] MEDS: *HR* LORazepam 1 MG TABLET PO SCH (21:59)
[2019-06-01] MEDS: *HR* Heparin 5,000 UNIT/ML VIAL SQ SCH (22:01)
[2019-06-01] MEDS: *HR* Acetylcysteine 20% 600 MG/3 ML ORAL SYRINGE PO SCH (22:58)
[2019-06-02 00:51] LABS: Basophils % 0.1 %; Eosinophils % 0.2 %; Hematocrit 42.4 % (35.3-44.9); Hemoglobin 13.6 g/dL (11.5-15.4); Immature Granulocytes % 0.4 % (0-4); Lymphocytes # 1.9 K/mcL (0.6-4.6); Lymphocytes % 18.3 %; Mean Corpuscular HGB Conc 32.1 g/dL (31.6-35.5); Mean Corpuscular Volume 87.2 fL (83.0-100.0); Monocytes # 0.7 K/mcL (0.0-1.3); Monocytes % 7.3 %; Neutrophils # 7.5 K/mcL (1.6-8.9); Platelet Count 257 K/mcL (140-400); Red Blood Count 4.86 M/mcL (3.82-4.97); Red Cell Distribution Width 14.9 % (11.5-14.5); Segmented Neutrophils % 73.7 %; White Blood Count 10.2 K/mcL (4.3-11.1)
[2019-06-02 01:16] LABS: BUN/Creatinine Ratio 15 (6-26); Blood Urea Nitrogen 9 mg/dL (8-23); Calcium 9.3 mg/dL (8.6-10.3); Carbon Dioxide 25 mEq/L (23-29); Chloride 103 mEq/L (98-107); Glucose 90 mg/dL (70-105); Magnesium 2.3 mg/dL (1.6-2.6); Osmolality,Calculated 286 (280-300); Potassium 3.4 mEq/L (3.5-5.1); Sodium 139 mEq/L (136-145); eGFR For African Americans > 60 (> 60); eGFR For Non-African Americans > 60 (> 60)
[2019-06-02] MEDS: *HR* Heparin 5,000 UNIT/ML VIAL SQ SCH ×2 (05:32→13:34)
[2019-06-02] MEDS: Ipratropium/Albuterol Neb 3 ML IH PRN ×2 (05:46→13:40)
[2019-06-02 06:46] VITALS: BP 105/64
[2019-06-02] MEDS ORDERED: MethylPREDNISolone 40 MG/ML VIAL IVP SCH (09:00)
[2019-06-02] MEDS ORDERED: Furosemide 20 MG TABLET PO SCH (09:00)
[2019-06-02] MEDS ORDERED: predniSONE 20 MG TABLET PO SCH (09:00)
[2019-06-02] MEDS ORDERED: predniSONE 5 MG TABLET PO SCH (09:00)
[2019-06-02] MEDS ORDERED: Cholecalciferol (D-3) 1,000 UNIT (25MCG) TABLET PO SCH (09:00)
[2019-06-02] MEDS: *HR* LORazepam 1 MG TABLET PO SCH ×2 (09:15→16:51)
[2019-06-02] MEDS: Budesonide Neb 0.5 MG/2 ML IH SCH (09:24)
[2019-06-02] MEDS: *HR* Acetylcysteine 20% 600 MG/3 ML ORAL SYRINGE PO SCH (10:48)
== END 2019-06-02 17:20 | disposition home health service (06) ==
LOC: 3BNU 08:46 → EMEROOARM 08:46 → 2ANU 08:46 → SUATTDRO 12:28 → 3BNU 13:09
PROVIDERS: ADMIT Pharmacist; ATTEND Internal Medicine